=== PATIENT | female | born 1955 | race Caucasian/White ===

== ENCOUNTER 2017-02-15 12:51 | Emergency (ER) | payer BC ==
[~2017-02-15] VITALS: Ht 160 cm; Wt 86.0 kg
[~2017-02-15 12:51] MED LIST: CYAN10004 PO
[2017-02-15 12:55] VITALS: Ht 160 cm; Wt 86.0 kg
[2017-02-15] MEDS ORDERED: LORA-741 PO (13:07)
[2017-02-15] MEDS ORDERED: SERT50TA PO (13:07)
[2017-02-15] MEDS ORDERED: ONDANSETRON INJ 2 MG/ML 2 ML VIAL IV STA (13:10)
[2017-02-15] MEDS ORDERED: SODIUM CHLORIDE 0.9% 1000ML 1,000 ML IV STA (13:10)
[2017-02-15 13:58] LABS: BASO % 0.1 %; BASO ABS # 0.01 K/uL (0-0.2); COMPLETE YES; HEMATOCRIT 41.3 % (37-47); IG% 0.3 %; LYMPH % 2.7 %; LYMPH ABS # 0.29 K/uL (1.2-3.4); MEAN CELL VOLUME 76.6 fL (80-100); MEAN CORPUSCULAR HEMOGLOBIN 23.7 pg (25-34); MEAN PLATELET VOLUME 8.7 fL (7.4-10.4); MONO % 3.4 %; NEUT % 93.5 %; PLATELET COUNT 217 K/uL (130-400); RED BLOOD COUNT 5.39 M/uL (4.2-5.4); WHITE BLOOD COUNT 10.59 K/uL (4.8-10.8)
[2017-02-15 14:17] LABS: BUN/CREATININE RATIO 29.9 (10-20); CALCIUM 9.2 mg/dl (8.5-10.1); CREATININE 0.89 mg/dl (0.60-1.20); POTASSIUM 3.8 mmol/L (3.5-5.1)
[2017-02-15] MEDS ORDERED: ONDA4TAB10 SL (15:22)
[2017-02-15 15:38] VITALS: BP 146/73; PULSE 100; TEMP 37; O2SAT 96
--- NOTE | 2017-02-15 18:11 | EMERGENCY ROOM VISIT NOTE ---
History Report prepared by Cherrie: Tricia gee Under the Supervision of: Dr. Getachew Tristan M.D. First contact with patient: 13:04 Chief Complaint: VOMITING Stated Complaint: VOMITING,DIARRHEA, PASSING OUT Nursing Triage Summary: pt to the ED with c/o vomitting diarrhea with near syncope that started yesterday at 1330 pt c/o intestinal pain History of Present Illness The patient is a 62 year old female who presents to the Emergency Room with complaints of intermittent vomiting beginning 24 hours ago. The patient states that she has been vomiting and having diarrhea at the same time and has had too many episodes to count. She reports that she had two episodes of near-syncope and had ringing in her ears and lightheadedness before she lowered herself to the ground. She complains of watery diarrhea, abdominal cramping and chills. She denies any loss of consciousness, bloody stool, foreign travel, recent antibiotic use, unusual foods, chest pain, and shortness of breath. The patient notes that her granddaughter stayed with her over the weekend and was sick with similar symptoms. She states that she had a hysterectomy 30 years ago and no other abdominal surgeries. Source of History: roommate Onset: 24 hours ago Position: other (global) Quality: other (vomiting) Timing: intermittent Associated Symptoms: + chills, + diarrhea, No LOC, No SOB, No chest pain Note: She complains of abdominal cramping, ears ringing, lightheadedness. She denies any bloody stool, foreign travel, recent antibiotic use, unusual foods. Review of Systems See HPI for pertinent positives & negatives. A total of 10 systems reviewed and were otherwise negative. Past Medical & Surgical Surgical Problems: (1) H/O: hysterectomy Family History No pertinent family history stated. Social History Smoking Status: Never Smoker Marital Status: Housing Status: lives with significant other Occupation Status: employed Current/Historical Medications Scheduled Cyanocobalamin (Vitamin B-12 1000 Mcg), 1,000 MCG PO QAM Lorazepam (Ativan), 0.5 MG PO HS Ondasetron Odt (Zofran Odt), 4 MG SL Q6H Sertraline (Zoloft), 50 MG PO DAILY Allergies Coded Allergies: No Known Drug Allergy (Verified Allergy, Unknown, NONE, 02/15/17) Adhesives (Verified Adverse Reaction, Unknown, SKIN TEARS, 02/15/17) Physical Exam Vital Signs Date Time Temp Pulse Resp B/P Pulse Ox O2 Delivery O2 Flow Rate FiO2 02/15/17 15:38 37.0 100 16 146/73 96 02/15/17 14:25 98 16 189/59 99 Room Air 02/15/17 13:49 100 16 181/91 95 Room Air 110 203/98 115 109/49 02/15/17 12:55 37.0 111 16 118/69 96 Physical Exam Constitutional: Vital signs reviewed. Eyes: Pupils are equal round reactive to light. Conjunctiva are noninjected. ENT: Pharynx is clear without erythema or exudate. Mucous membranes are dry. Neck supple without meningeal signs. Respiratory: Clear to auscultation bilaterally. Breath sounds are equal bilaterally. Cardiovascular: Regular rate and rhythm. No rubs or gallops. GI: Soft, nondistended and nontender. Bowel sounds are present. Musculoskeletal: No peripheral edema. Integumentary: No cyanosis. Neurological: The patient is awake and alert. No focal deficits. Psychiatric: Normal affect. Medical Decision & Procedures Laboratory Results 02/15/17 13:40 Red Blood Count 5.39, Mean Corpuscular Volume 76.6, Mean Corpuscular Hemoglobin 23.7, Mean Corpuscular Hemoglobin Concent 31.0, Mean Platelet Volume 8.7, Neutrophils (%) (Auto) 93.5, Lymphocytes (%) (Auto) 2.7, Monocytes (%) (Auto) 3.4, Eosinophils (%) (Auto) 0.0, Basophils (%) (Auto) 0.1, Neutrophils # (Auto) 9.90, Lymphocytes # (Auto) 0.29, Monocytes # (Auto) 0.36, Eosinophils # (Auto) 0.00, Basophils # (Auto) 0.01 02/15/17 13:40 Test 02/15/17 13:40 White Blood Count 10.59 K/uL (4.8-10.8) Red Blood Count 5.39 M/uL (4.2-5.4) Hemoglobin 12.8 g/dL (12.0-16.0) Hematocrit 41.3 % (37-47) Mean Corpuscular Volume 76.6 fL (80-100) Mean Corpuscular Hemoglobin 23.7 pg (25-34) Mean Corpuscular Hemoglobin Concent 31.0 g/dl (32-36) Platelet Count 217 K/uL (130-400) Mean Platelet Volume 8.7 fL (7.4-10.4) Neutrophils (%) (Auto) 93.5 % Lymphocytes (%) (Auto) 2.7 % Monocytes (%) (Auto) 3.4 % Eosinophils (%) (Auto) 0.0 % Basophils (%) (Auto) 0.1 % Neutrophils # (Auto) 9.90 K/uL (1.4-6.5) Lymphocytes # (Auto) 0.29 K/uL (1.2-3.4) Monocytes # (Auto) 0.36 K/uL (0.11-0.59) Eosinophils # (Auto) 0.00 K/uL (0-0.5) Basophils # (Auto) 0.01 K/uL (0-0.2) RDW Standard Deviation 41.6 fL (36.4-46.3) RDW Coefficient of Variation 14.8 % (11.5-14.5) Immature Granulocyte % (Auto) 0.3 % Immature Granulocyte # (Auto) 0.03 K/uL (0.00-0.02) Anion Gap 10.0 mmol/L (3-11) Est Creatinine Clear Calc Drug Dose 66.4 ml/min Estimated GFR () 79.4 Estimated GFR (Non- 68.5 BUN/Creatinine Ratio 29.9 (10-20) Calcium Level 9.2 mg/dl (8.5-10.1) Laboratory results as reviewed by me. Medications Administered Medications (Trade) Dose Ordered Sig/Jimmy Route Start Time Stop Time Status Last Admin Dose Admin Sodium Chloride (Nss 1000ml) 1,000 ml @ 999 mls/hr Q1H1M STAT IV 02/15/17 13:10 02/15/17 14:10 DC 02/15/17 13:46 999 MLS/HR Ondansetron HCl (Zofran Inj) 4 mg NOW STAT IV 02/15/17 13:10 02/15/17 13:12 DC 02/15/17 13:46 4 MG ECG Indication: abdominal pain Rate (beats per minute): 91 Rhythm: normal sinus Findings: no acute ischemic change, no ectopy ED Course 1304: The patient was evaluated in room B11. A complete history and physical exam was performed. 1310: Zofran Inj 4mg IV, Sodium Chloride 1000 ml @ 999 mls/hr IV. 1450: I reevaluated the patient. She is feeling better and drinking pavel fadia. 1532: Upon reevaluation, the patient appeared to have improvement of her symptoms. I discussed tonight's findings with the patient.. She verbalized agreement of the treatment plan. The patient was discharged home. Medical Decision This is a 62-year-old female presents with vomiting and diarrhea and near- syncope. Differential diagnosis includes orthostatic hypotension, dehydration, foodborne illness, gastroenteritis, electrolyte abnormality. I did perform a limited focused review of portions of the patient's old chart on the electronic medical record. The patient had a colonoscopy in December of last year which showed a polyp that was resected and non bleeding internal hemorrhoids. I did evaluate the patient as noted above. The patient is well-appearing. She had multiple episodes of vomiting and diarrhea. Her granddaughter was ill with similar symptoms and she recently came into contact with her. She did have near syncope but did not pass out. Orthostatic vital signs were obtained and she does have significant orthostatic hypotension. IV access was established. The patient was placed on a continuous vehicle monitor technician. I did treat patient with no saline IV. She was also given Zofran IV. I did order and personally review the patient's 12-lead EKG as described above. I did order and review the patient's blood work as noted in the electronic medical record. Labs are unremarkable. Stool testing for C. difficile was negative. A stool culture is pending. I did reassess the patient. She is feeling better. She is drinking without difficulty. I did discuss the test results with her. She was advised follow with her doctor and told to avoid getting up suddenly. She will continue fluids at home. She was discharged with a prescription for Zofran. Impression Primary Impression: Dehydration Additional Impressions: Orthostatic hypertension Vomiting and diarrhea Scribe Attestation The scribe's documentation has been prepared under my direct and personally reviewed by me in its entirety. I confirm that the note above accurately reflects all work, treatment, procedures, and medical decision making performed by me. Departure Information Dispostion Home / Self-Care Prescriptions Ondasetron Odt (ZOFRAN ODT) 4 Mg Tab 4 MG SL Q6H for Nausea, #10 TAB Prov: Getachew Tristan M.D. 02/15/17 Referrals Carlo Banerjee M.D. (PCP) Forms HOME CARE DOCUMENTATION FORM, IMPORTANT VISIT INFORMATION Patient Instructions ED Hypotension Orthostatic, ED Vomiting Diarrhea Nonspecific Ad, My [facility] Additional Instructions You have been examined and treated today on an emergency basis only. This is not a substitute for, or an effort to provide, complete comprehensive medical care. It is impossible to recognize and treat all injuries or illnesses in a single emergency department visit. It is therefore important that you follow up closely with your physician. Call as soon as possible for an appointment. Return for worsening symptoms or if you develop fever, chest pain, shortness of breath or any other concerning symptoms. Problem Qualifiers
== END 2017-02-15 15:39 | disposition home or self-care (01) ==
LOC: C.EDB 12:54
DX: E86.0 Dehydration (principal); R19.7 Diarrhea, unspecified; R11.10 Vomiting, unspecified; R55 Syncope and collapse; I95.1 Orthostatic hypotension

== ENCOUNTER → 2017-05-03 | Outpatient (CLI) | payer BC ==
[~2017-05-03] MED LIST changes: +LORA-741 PO; +ONDA4TAB10 SL; +SERT50TA PO
--- NOTE | 2017-05-03 13:31 | MAMMOGRAPHY REPORT ---
BILATERAL DIGITAL SCREENING MAMMOGRAM WITH CAD: 05/03/2017 CLINICAL HISTORY: Routine screening. Patient has no complaints. TECHNIQUE: Bilateral CC and MLO views were obtained. Current study was also evaluated with a Compute r Aided Detection (CAD) system. COMPARISON: Comparison is made to exams dated: 03/04/2016 mammogram, 12/20/2014 mammogram, 11/06/2013 m ammogram, 07/03/2012 mammogram, 07/01/2011 mammogram, and 06/23/2010 mammogram - [facility] enter. BREAST COMPOSITION: The tissue of both breasts is almost entirely fatty. FINDINGS: The parenchymal pattern is unchanged. No developing mass, architectural distortion or clus ter of suspicious microcalcifications is seen in either breast. No suspicious mass, architectural distortion or cluster of microcalcifications is seen. IMPRESSION: ACR BI-RADS CATEGORY 2: BENIGN There is no mammographic evidence of malignancy. A 1 year screening mammogram is recommended. The pa tient will receive written notification of the results. Approximately 10% of breast cancers are not detected with mammography. A negative mammographic report should not delay biopsy if a clinically suggestive mass is present. Maddy Gordon M.D. ay/:05/03/2017 12:37:36 Track Equipment Operator: Shanon CLARK(R)(Shashi), [facility] [address] letter sent: Normal 1/2 BI-RADS Code: ACR BI-RADS Category 2: Benign
== END | disposition home or self-care (01) ==
LOC: C.MAMM 10:39
PROVIDERS: ATTEND Internal Medicine
DX: Z12.31 Encounter for screening mammogram for malignant neoplasm of breast (principal)

== ENCOUNTER → 2017-06-16 | Outpatient (CLI) | payer BC ==
[2017-06-16 13:25] LABS: BASO % 0.4 %; BASO ABS # 0.03 K/uL (0-0.2); COMPLETE YES; HEMATOCRIT 40.2 % (37-47); IG% 0.4 %; LYMPH % 15.5 %; LYMPH ABS # 1.21 K/uL (1.2-3.4); MEAN CELL VOLUME 78.1 fL (80-100); MEAN CORPUSCULAR HEMOGLOBIN 23.1 pg (25-34); MEAN CORPUSCULAR HGB CONC 29.6 g/dl (32-36); MEAN PLATELET VOLUME 9.4 fL (7.4-10.4); MONO % 4.7 %; PLATELET COUNT 259 K/uL (130-400); RED BLOOD COUNT 5.15 M/uL (4.2-5.4); WHITE BLOOD COUNT 7.79 K/uL (4.8-10.8)
[2017-06-16 13:45] LABS: ESTIMATED AVERAGE GLUCOSE 137 mg/dl; HA1C FLAG Normal (Normal)
[2017-06-16 14:12] LABS: ALT/SGPT 19 U/L (12-78); BLOOD UREA NITROGEN 14 mg/dl (7-18); BUN/CREATININE RATIO 17.9 (10-20); CALCIUM 9.3 mg/dl (8.5-10.1); CARBON DIOXIDE 29 mmol/L (21-32); CHLORIDE 102 mmol/L (98-107); CHOLESTEROL 184 mg/dl (0-200); CREATININE 0.76 mg/dl (0.60-1.20); GLUCOSE 115 mg/dl (70-99); POTASSIUM 4.1 mmol/L (3.5-5.1); SODIUM 137 mmol/L (136-145); TRIGLYCERIDES 111 mg/dl (0-150); VERY LOW DENSITY LIPOPROT CALC 22 mg/dl
[2017-06-16 14:25] LABS: ALB/GLOB RATIO 0.9 (0.9-2); ALKALINE PHOSPHATASE 85 U/L (45-117); AST/SGOT 16 U/L (15-37); CHOLESTEROL/HDL RATIO 3.8; HDL CHOLESTEROL 49 mg/dl
== END | disposition home or self-care (01) ==
LOC: C.LABSPEC 12:42
PROVIDERS: ATTEND Internal Medicine
DX: R55 Syncope and collapse (principal); R53.83 Other fatigue; E78.5 Hyperlipidemia, unspecified; E11.9 Type 2 diabetes mellitus without complications; D51.0 Vitamin B12 deficiency anemia due to intrinsic factor deficiency; Z11.59 Encounter for screening for other viral diseases

== ENCOUNTER → 2017-10-20 | Outpatient (CLI) | payer BC ==
[~2017-10-20] MED LIST changes: -ONDA4TAB10 SL
[2017-10-20 15:29] LABS: BASO % 0.2 %; BASO ABS # 0.02 K/uL (0-0.2); EOS % 0.1 %; EOS ABS # 0.01 K/uL (0-0.5); HEMATOCRIT 38.4 % (37-47); IG# 0.05 K/uL (0.00-0.02); LYMPH % 9.9 %; LYMPH ABS # 0.89 K/uL (1.2-3.4); MEAN CELL VOLUME 75.4 fL (80-100); MEAN CORPUSCULAR HEMOGLOBIN 23.6 pg (25-34); MEAN CORPUSCULAR HGB CONC 31.3 g/dl (32-36); MEAN PLATELET VOLUME 9.8 fL (7.4-10.4); MONO % 6.4 %; MONO ABS # 0.57 K/uL (0.11-0.59); NEUT % 82.8 %; NEUT ABS # 7.43 K/uL (1.4-6.5); PLATELET COUNT 278 K/uL (130-400); RED CELL DISTRIBUTION WIDTH CV 15.5 % (11.5-14.5); RED CELL DISTRIBUTION WIDTH SD 42.8 fL (36.4-46.3); WHITE BLOOD COUNT 8.97 K/uL (4.8-10.8)
[2017-10-20 15:43] LABS: ALBUMIN 3.8 gm/dl (3.4-5.0); BLOOD UREA NITROGEN 10 mg/dl (7-18); CALCIUM 9.2 mg/dl (8.5-10.1); CARBON DIOXIDE 27 mmol/L (21-32); CREATININE 0.97 mg/dl (0.60-1.20); GLUCOSE 134 mg/dl (70-99); POTASSIUM 3.9 mmol/L (3.5-5.1); SODIUM 138 mmol/L (136-145)
[2017-10-20 15:52] LABS: ALKALINE PHOSPHATASE 84 U/L (45-117); ALT/SGPT 23 U/L (12-78); AST/SGOT 17 U/L (15-37); TOTAL PROTEIN 8.1 gm/dl (6.4-8.2)
== END | disposition home or self-care (01) ==
LOC: C.LABSPEC 14:57
PROVIDERS: ATTEND Internal Medicine
DX: E86.0 Dehydration (principal); R19.7 Diarrhea, unspecified